=== PATIENT | female | born 1990 | race Caucasian/White ===

== ENCOUNTER 2020-11-14 19:40 | Emergency (ER) | payer MEDICAID ==
[2020-11-14] MEDS ORDERED: Ibuprofen 600 MG Tab PO ONE (20:16)
--- NOTE | 2020-11-14 21:05 | EDM.PDOC ---
ED HPI GENERAL MEDICAL PROBLEM - General Chief Complaint: Lower Extremity Injury/Pain Stated Complaint: PAIN BEHIND LT KNEE Time Seen by Provider: 11/14/20 20:05 - History of Present Illness INITIAL COMMENTS - FREE TEXT/NARRATIVE: HISTORY AND PHYSICAL: History of present illness: This is a healthy 30-year-old female who presents ER today complaining of pain to the lateral aspect of her left knee. Patient reports that she was sitting down and when she tried to stand up she felt a pop to her left knee and experienced sharp pain to the lateral aspect of that knee. Patient reports that she has been able to weight-bear. Patient denies any prior history of injuries to her left knee. Patient has a history of hypertension, diabetes, liver, lung, kidney problems. Patient reports no swelling or discomfort to her patella. Patient has no pain or discomfort to her hip femur or distal tib-fib/ankle. Review of systems: As per history of present illness and below otherwise all systems reviewed and negative. Past medical history: As per history of present illness and as reviewed below otherwise noncontributory. Surgical history: As per history of present illness and as reviewed below otherwise noncontributory. Social history: No reported history of drug or alcohol abuse. Family history: As per history of present illness and as reviewed below otherwise noncontributory. Physical exam: This patient was seen and evaluated during the 2019 SARS-CoV-2 novel coronavirus pandemic period. Community viral transmission is ongoing at time of this encounter and the emergency department is operating under pandemic response procedures. Constitutional: Patient is oriented to person, place, and time. Appears well- developed and well-nourished. No distress. HEENT: Moist mucous membranes Head: Normocephalic and atraumatic Eyes: Right eye exhibits no discharge. Left eye exhibits no discharge. No scleral icterus Neck: Normal range of motion. No tracheal deviation present. Cardiovascular: Normal rate and regular rhythm. Pulmonary: Effort normal, no respiratory distress. Abdominal: No distention Musculoskeletal: Normal range of motion Neurologic: Alert and oriented to person, place and time. Skin: [place], warm and dry. Psychiatric: Normal mood and affect. Behavior is normal. Judgment and thought content normal. Nursing note and vital signs have been reviewed Patient's ER physical exam is significant for tenderness to palpation to the lateral aspect of her left knee. Patient has no knee effusion. Patient has no ligamentous laxity. Patient has no pain with anterior posterior drawer. Patient does have some tenderness when applying lateral stressors. Patient has pain to palpation when palpating the lateral aspect of her left knee. Patient's right knee is unremarkable. Patient has no pain or discomfort to her left hip femur or ankle. Diagnostics: Left knee x-ray: Therapeutics: Ibuprofen 600 mg p.o. Patient will be placed in a left knee immobilizer secondary to ligamentous injury. This will benefit the patient by immobilizing the left knee and allowing the ligaments to heal appropriately. Patient will need to have the knee immobilizer in place for 1 week. Assessment and plan: Is a 30-year-old female who presents ER today complaining of pain to her left knee that occurred acutely when she was trying to stand up and felt a pop to her left knee. Patient's x-rays are negative for any acute fracture. Patient will be given a prescription for ibuprofen and a knee immobilizer to assist with pain as well as immobilizing the left knee to assist with healing of her ligamentous injury. Patient was given the phone number for orthopedic clinic for further evaluation. Reassessment at the time of disposition demonstrates that the patient is in no acute distress. The patient has remained stable throughout the entire ED visit and is without objective evidence for acute process requiring urgent intervention or hospitalization. The patient is stable for discharge, counseling is provided as documented above, discussed symptomatic treatment and specific conditions for return. I have spoken with the patient/caregiver and discussed todays findings, in addition to providing specific details for the plan of care. Questions are answered and there is agreement with the plan. Definitive disposition and diagnosis as appropriate pending reevaluation and review of above. left knee Pain Score (Numeric/FACES): 5 - Related Data Allergies Allergy/AdvReac Type Severity Reaction Status Date / Time No Known Allergies Allergy Verified 11/14/20 19:59 Home Meds: Home Meds Ibuprofen 600 mg PO Q6HR PRN #30 tablet 11/14/20 [Rx] Past Medical History - Past Health History Medical/Surgical History: Denies Medical/Surgical History - Infectious Disease History Infectious Disease History: Reports: Chicken Pox Social & Family History - Tobacco Use Tobacco Use Status *Q: Current Every Day Tobacco User Years of Tobacco use: 10 Packs/Tins Daily: 1 - Recreational Drug Use Recreational Drug Use: No Review of Systems - Review of Systems Review Of Systems: See Below ED EXAM, GENERAL - Physical Exam Exam: See Below Course - Vital Signs Last Recorded V/S: Last Vital Signs Temp 97.8 F 11/14/20 19:59 Pulse 96 11/14/20 19:59 Resp 19 11/14/20 19:59 BP 131/72 11/14/20 19:59 Pulse Ox 99 11/14/20 19:59 - Orders/Labs/Meds Orders: Active Orders 24 hr Category Date Time Status Knee 3V Lt [CR] Stat Exams 11/14/20 20:16 Ordered DME for Discharge [COMM] Stat Oth 11/14/20 20:16 Ordered Meds: Medications Discontinued Medications Generic Name Dose Route Start Last Admin Trade Name Freq PRN Reason Stop Dose Admin Ibuprofen 600 mg 11/14/20 20:16 11/14/20 20:26 Ibuprofen 600 Mg Tab PO 11/14/20 20:17 600 mg ONETIME ONE Administration Departure - Departure Time of Disposition: 21:04 Disposition: Home, Self-Care 01 Condition: Good Clinical Impression: Left knee pain Qualifiers: Chronicity: acute Qualified Code(s): M25.562 - Pain in left knee Injury of ligament of left knee Qualifiers: Encounter type: initial encounter Qualified Code(s): S89.92XA - Unspecified injury of left lower leg, initial encounter - Discharge Information Instructions: Acute Knee Pain, Adult, How to Use a Knee Immobilizer Referrals: Jonah Dowling MD [Primary Care Provider] - Additional Instructions: Your seen and evaluated in the ER today secondary to pain to your left knee. Your x-rays did not reveal any evidence of bony abnormalities or fractures. Your pain is most likely secondary to a ligamentous injury. You have been placed in a knee immobilizer to help stabilize your ligaments which should assist with faster healing. You will also be given a prescription for ibuprofen to take for pain and discomfort. Please apply ice to the knee region and keep elevated over the next 1 to 2 days. We will give the phone number for the orthopedic clinic to follow-up with him for further evaluation. [facility] - Orthopedic Clinic [address], [address] [place] [address] The following information is given to patients seen in the emergency department who are being discharged to home. This information is to outline your options for follow-up care. We provide all patients seen in our emergency department with a follow-up referral. The need for follow-up, as well as the timing and circumstances, are variable depending upon the specifics of your emergency department visit. If you don't have a primary care physician on staff, we will provide you with a referral. We always advise you to contact your personal physician following an emergency department visit to inform them of the circumstance of the visit and for follow-up with them and/or the need for any referrals to a consulting specialist. The emergency department will also refer you to a specialist when appropriate. This referral assures that you have the opportunity for follow-up care with a specialist. All of these measure are taken in an effort to provide you with optimal care, which includes your follow-up. Under all circumstances we always encourage you to contact your private physician who remains a resource for coordinating your care. When calling for follow-up care, please make the office aware that this follow-up is from your recent emergency room visit. If for any reason you are refused follow-up, please contact the [facility] Emergency Department at and asked to speak to the emergency department charge nurse. [facility] - Primary [facility] [address] [place] [address] [id number] [address] [address] Sepsis Event Note (ED) - Evaluation Sepsis Screening Result: No Definite Risk - Focused Exam Vital Signs: Vital Signs Temp Pulse Resp BP Pulse Ox 11/14/20 19:59 97.8 F 96 19 131/72 99 - My Orders Last 24 Hours: My Active Orders 11/14/20 20:16 Knee 3V Lt [CR] Stat DME for Discharge [COMM] Stat - Assessment/Plan Last 24 Hours: My Active Orders 11/14/20 20:16 Knee 3V Lt [CR] Stat DME for Discharge [COMM] Stat
--- NOTE | 2020-11-14 21:41 | CR ---
INDICATION: Pain in left knee posteriorly. TECHNIQUE: Three views left knee. FINDINGS: Mild increased density in the subcutaneous tissues of the left lateral leg may be related to subcutaneous edema. No acute fracture, dislocation, or effusion in left knee. Left knee otherwise negative. Dictated by Viraj Joshi MD @ Nov 14 2020 9:38PM Signed by Dr. Viraj Joshi @ Nov 14 2020 9:40PM
== END 2020-11-14 21:15 | disposition home or self-care (01) ==
LOC: MW.ED 19:40
DX: S83.92XA Sprain of unspecified site of left knee, initial encounter (principal); I10 Essential (primary) hypertension; E11.9 Type 2 diabetes mellitus without complications; Z72.0 Tobacco use; X58.XXXA Exposure to other specified factors, initial encounter
CPT/HCPCS: 73562; 99283; A9270